=== PATIENT | male | born 1955 | race Caucasian/White ===

== ENCOUNTER 2023-09-28 14:10 | Emergency (ER) | payer BC, OTHER ==
[2023-09-28] MEDS ORDERED: Ibuprofen 200 MG TAB ONE (15:58)
== END 2023-09-28 16:00 | disposition home or self-care (01) ==
LOC: ERS 14:10
DX: R07.81 Pleurodynia (principal); E78.5 Hyperlipidemia, unspecified; Z79.899 Other long term (current) drug therapy